=== PATIENT | female | born 1955 | race Caucasian/White ===

== ENCOUNTER 2016-11-04 15:51 | Inpatient (IN) | payer MEDICARE ==
--- NOTE | ~2016-11-04 | CN ---
Consultation Report [facility] [address] [place]. [address] NAME: BELINDA MONTANA : 57 STATUS : ADM IN PAT#: [id number] AGE: 61 ADM/REG DATE : 11/04/16 MR#: [id number] REPORT SERV DATE: 11/06/16 DICTATED BY: OSCAR VINCENT DATE: 11/06/16 REPORT STATUS : Draft TRANSCRIBED BY: MODL DATE: 11/06/16 GI CONSULTATION DATE OF CONSULTATION: 11/06/2016 REASON FOR CONSULTATION: Evaluation and management of abdominal pain. HISTORY OF PRESENT ILLNESS: Ms. Montana is a 61-year-old female patient, who presented to [facility] on the with a chief complaint of right-sided abdominal pain, nausea, emesis, palpitations, and dizziness. She has a history of atrial fibrillation, on chronic Coumadin therapy; as well as uncontrolled diabetes; chronic systolic heart failure, ejection fraction of 35%; chronic kidney disease, stage 3 to 4. She tells me that she has had right-sided abdominal pain for quite sometime now, that has progressively began to worsen. She states her pain is only in the nighttime hours, typically awakens her from sleep, it is in the right upper quadrant mid epigastric region, that wraps around to her back. She states that the only thing that helps it is pain medications, and typically on the mornings after an episode, she feels fine and can go about her activities of daily living. She states that sometimes it can be on the left side, but primarily it is on the right side. She does have reflux and indigestion. She has chronic constipation. She has had no fevers or chills. No melena. No hematochezia. She has never seen a GI physician, had an EGD, nor a colonoscopy. She has type 2 diabetes, that is uncontrolled with a hemoglobin A1c of 12.3. She also, when she came in, was found to be in atrial fibrillation with RVR, which her rate has since been controlled on medications, and has been evaluated by Cardiology. She admits to chronic lower back pain also. She does have a history of a lap band in 2004, which she states has not been adjusted or "dealt with" since it was placed; however, she had a CT scan on admission on which it appeared to be without any abnormality. She had an initial blood sugar in the emergency room of 516 as well as atrial fibrillation with RVR, rate in 140s, with a very mildly elevated troponin. Her white count has been elevated slightly at 13. She was initially started on a Cardizem drip, which has been since converted to oral medications. As stated, CT done on admission without contrast revealed no acute abnormality in the abdomen or pelvis, stable satisfactory position of the lap band device, nonspecific hepatomegaly and hepatic steatosis pattern progressed since her last exam, IVC filter in place within the infrarenal IVC with questionable migration, cardiomegaly with patchy interstitial pulmonary edema versus a bilateral interstitial pneumonitis pattern. She had elevated LFTs with an ALT of 71, AST of 86. Lipase was normal at 302. Total bilirubin was 0.5. PAST MEDICAL HISTORY: Proximal atrial fibrillation, on chronic Coumadin; uncontrolled type 2 diabetes, hemoglobin A1c of 13.2; chronic systolic CHF with ejection fraction of 35%; hypertension; obstructive sleep apnea, with CPAP; hyperlipidemia; chronic kidney disease, stage 3/4; history of DVT with IVC filter; COPD; history of stroke; coronary artery disease, past CABG; hypothyroidism; anemia. PAST SURGICAL HISTORY: CABG, cholecystectomy, lap band, IVC filter. Consultation Report [address] [address] NAME: BELINDA MOTNANA : 57 STATUS : ADM IN [facility]#: [id number] AGE: 61 ADM/REG DATE : 11/04/16 MR#: [id number] REPORT SERV DATE: 11/06/16 DICTATED BY: OSCAR VINCENT DATE: 11/06/16 REPORT STATUS : Draft TRANSCRIBED BY: MIGEL DATE: 11/06/16 SOCIAL HISTORY: She has history of past tobacco. No alcohol or illicits. FAMILY HISTORY: Noncontributory from a GI standpoint. ALLERGIES: TO SOTALOL, AMIODARONE, LEVAQUIN, AND ROCEPHIN. HOME MEDICATIONS: Lipitor, Celexa, Klonopin, Flexeril, Lanoxin, Cartia, Benadryl, Amaryl, Novolin, levothyroxine, Zaroxolyn, Singulair, potassium, Requip, Demadex, Ultram, and Coumadin. REVIEW OF SYSTEMS: A 10-point review of systems has been obtained with pertinent positives being addressed in the history of present illness. PHYSICAL EXAMINATION: VITAL SIGNS: Temperature is 97.6, pulse of 106, respirations of 18, blood pressure of 121/61. GENERAL: Physical exam reveals an alert, obese, female, resting in bed. In general, she is cooperative. She is in no acute distress. She is awake, alert, and oriented x3. HEAD, EARS, EYES, NOSE, AND THROAT: Anicteric. Pupils are equal, round, reactive to light and accommodation. Normocephalic and atraumatic. NECK: No JVD. No palpable nodes. LUNGS: Coarse throughout with normal respiratory effort exhibited. CARDIOVASCULAR SYSTEM: Irregular rate and rhythm. ABDOMEN: Obese, nondistended, nontender. Unable to assess organomegaly secondary to body habitus. EXTREMITIES: Slight lower extremity edema. SKIN: Warm, dry, and intact. PERTINENT LABORATORY DATA: Sodium is 136, potassium 3.8, BUN is 33, creatinine 2.2. White count 13, hemoglobin 10.6, hematocrit 32.6, INR of 1.8, platelet count 265. Troponin 0.12. BNP 363 with a TSH of 4.8. ASSESSMENT: 1. Abdominal pain, mainly right-sided, and the patient states nocturnal abdominal pain which has progressively worsened. 2. Hepatomegaly with hepatic steatosis with elevated liver function tests. 3. Atrial fibrillation with rapid ventricular response, now rate controlled. 4. Type 2 diabetes, uncontrolled. 5. Volume overload with congestive heart failure. Last ejection fraction of 35%. 6. IVC filter migration questionably. 7. Obesity. Consultation Report [address] [place]. [address] NAME: BELINDA MONTANA : 57 STATUS : ADM IN PAT#: [id number] AGE: 61 ADM/REG DATE : 11/04/16 MR#: [id number] REPORT SERV DATE: 11/06/16 DICTATED BY: OSCAR VINCENT DATE: 11/06/16 REPORT STATUS : Draft TRANSCRIBED BY: MIGEL DATE: 11/06/16 PLAN: Check hepatitis panel, LFTs, ultrasound of the liver with Doppler of the vessels as well as check a mesenteric ultrasound, and follow. ARUN/MIGEL Oscar TAQUERIA Tai / [id number] CC: Eran Ordaz M.D.
--- NOTE | ~2016-11-04 | DS ---
Discharge Summary [facility] [address] [place]. [address] NAME: BELINDA MEDINA : 57 STATUS : DIS IN PAT#: [id number] AGE: 61 ADM/REG DATE : 11/04/16 MR#: [id number] REPORT SERV DATE: 11/09/16 DICTATED BY: MICHELLE SONI DATE: 11/08/16 REPORT STATUS : Draft TRANSCRIBED BY: MODL DATE: 11/08/16 ADMISSION DATE: 11/04/2016 DISCHARGE DATE: 11/08/2016 DISCHARGE DIAGNOSES: 1. Abdominal pain, more likely constipation. 2. Uncontrolled diabetes. Patient seen by diabetic education nurse and highly recommend diet control. 3. Atrial fibrillation with rapid ventricular rate, improved, rate controlled, and beta- tsering was added on this admission. 4. BMI 42.9. 5. Sleep apnea, compliant with the CPAP. 6. Chronic kidney disease with acute kidney injury, which is improved. 7. Chronic Coumadin use. CONSULTANTS: 1. Dr. Camacho. 2. GI Associate. 3. Dr. Leggett. HISTORY OF PRESENT ILLNESS: This is a 61-year-old obese female patient, patient of Dr. Lauren Figueroa, came to the hospital with abdominal pain. Please see dictated H and P. She was admitted to hospital with abdominal pain with multiple comorbidities. She had a CT of the abdomen that showed no significant acute pathology. Had been seen by GI and evaluated for vasculopathy. Her mesenteric Doppler was negative. She was found to have constipation and was treated with an AR, and she is better, much improved. On the CT finding, she does have some exophytes coming from her right kidney that will need a followup CT scan. Overall, the medications have been stabilized and managed without significant change of medications. Her atrial fibrillation was noted to be fast rate and was treated with addition of the beta tsering. She will continue to use Toprol-XL 25 mg twice a day based on Dr. Leggett's recommendation. Overall, had maximized benefit of the inpatient care, will be discharged to home. DISCHARGE MEDICATIONS: 1. Aspirin 81 mg once a day. 2. MiraLAX powder once a day. 3. Toprol-XL 25 mg twice a day. 4. Lipitor 20 mg once at nighttime. 5. Celexa 40 mg once a day. 6. Lanoxin 0.125 mg once a day. 7. Cardizem CD 360 mg once a day. 8. Levothyroxine 100 mcg once a day. 9. Requip 1 mg once a day. Discharge Summary [facility] [id number] [place]. [address] NAME: BELINDA MEDINA : 57 STATUS : DIS IN PAT#: [id number] AGE: 61 ADM/REG DATE : 11/04/16 MR#: [id number] REPORT SERV DATE: 11/09/16 DICTATED BY: MICHELLE SONI DATE: 11/08/16 REPORT STATUS : Draft TRANSCRIBED BY: MODL DATE: 11/08/16 10.Singulair 10 mg once a day. 11.Coumadin 1.5 Saturday, Saturday, Saturday; 2 mg the other days. 12.Klonopin 1 mg once a day. 13.Demadex 100 mg once a day. 14.Ultram as needed. DISPOSITION: 1. Patient will be discharged to home in stable condition. Need to follow up with Dr. Lauren Figueroa. 2. The patient will need a close followup with the CT of the renal mass. TIME SPENT: More than 30 minutes on discharge summary. EKL/MODL Michelle Soni M.D. / [id number] CC: Eran Ordaz M.D.
--- NOTE | ~2016-11-04 | CN ---
Consultation Report [facility] [address] [place]. [address] NAME: BELINDA MEDINA : 57 STATUS : ADM IN PAT#: [id number] AGE: 61 ADM/REG DATE : 11/04/16 MR#: [id number] REPORT SERV DATE: 11/05/16 DICTATED BY: MARTÍN LEGGETT DATE: 11/05/16 REPORT STATUS : Draft TRANSCRIBED BY: MODL DATE: 11/05/16 CARDIOLOGY CONSULTATION DATE OF CONSULTATION: 11/05/2016 REASON FOR CONSULTATION: Atrial fibrillation with rapid ventricular rate. HISTORY OF PRESENT ILLNESS: The patient is a 61-year-old female with chronic atrial fibrillation in her rate control strategy, who has previously been intolerant to sotalol and amiodarone with failure of Tikosyn. The patient typically managed on calcium channel tsering and digoxin. Digoxin recently discontinued due to dizziness. The patient presented to the emergency department with complaints of rapid palpitations and dyspnea over three days. She reports that, she had been out of her diltiazem for three days. The patient typically takes diltiazem extended release, taking 180 mg capsule, which had previously been increased by her primary care physician to two capsules daily. When the prescription was renewed, it was renewed only for one tablet daily. She ran out of her diltiazem early because of the increased usage and when she called for refill, the pharmacy/her insurance company denied the same stating that she was not eligible for refill yet. In addition to several days of palpitations, the patient has noted one to two week history of right upper quadrant abdominal pain. She reports some intermittent nausea and vomiting. The patient has a history of chronic dizziness. On her last outpatient office visit, we trialed discontinuation of digoxin. The patient reports some borderline improvement in dizziness off the digoxin, but no significant symptom improvement. The patient denies chest pain. Dyspnea on exertion, which has been worse since increase in heart rate. Currently, rate is adequately controlled on intravenous diltiazem drip. Minimal troponin elevation. No acute ischemic injury pattern on EKG. PAST MEDICAL HISTORY: 1. Permanent atrial fibrillation with previous intolerance to sotalol, amiodarone, and ineffectiveness of Tikosyn. Currently, managed on oral digoxin and diltiazem with rate control strategy. 2. Chronic anticoagulation for stroke prophylaxis secondary to atrial fibrillation-on warfarin. 3. Diabetes mellitus. 4. CAD, status post 4-vessel coronary artery bypass grafting, 09/07/[address] Ji Pendleton with GUTIERREZ-LAD, SVG-PDA, SVG-circumflex, SVG-first diagonal. a. Cardiac catheterization, 02/18/2013 with chronic total occlusion of SVG to diagonal and SVG to PDA, left to right collaterals to the PDA. 5. Ischemic cardiomyopathy - ejection fraction of 45% by most recent echo (actually a PENNY) (07/19/2016 with EF of 45%). 6. Asthma/COPD. 7. Diabetes mellitus. 8. Chronic kidney disease, stage III. 9. Hypothyroidism. Consultation Report [address] [place]. [address] NAME: BELINDA MEDINA : 57 STATUS : ADM IN [facility]#: [id number] AGE: 61 ADM/REG DATE : 11/04/16 MR#: [id number] REPORT SERV DATE: 11/05/16 DICTATED BY: MARTÍN LEGGETT DATE: 11/05/16 REPORT STATUS : Draft TRANSCRIBED BY: MIGEL DATE: 11/05/16 10.Obstructive sleep apnea, on CPAP. 11.Type 2 diabetes mellitus with exceptionally poor control. SOCIAL HISTORY: Denies tobacco, alcohol, or illicit drug use. Remote smoking history. FAMILY HISTORY: Noncontributory. ALLERGIES: AMIODARONE, CEFTRIAXONE, LEVOFLOXACIN, AND SOTALOL. REVIEW OF SYSTEMS: Negative for all organ systems except per the history of present illness. PHYSICAL EXAMINATION: VITAL SIGNS: Pulse ranging 86 to 96 and regular, blood pressure ranging 102/70 to 133/81, weight 110 kg, respirations 12 and unlabored, saturating 94% on room air. GENERAL: Morbidly obese, middle-aged female, in no acute distress. HEENT: Normal. NECK: Supple, no JVD or bruit, normal carotid upstroke bilaterally, no thyromegaly. LUNGS: Clear to auscultation and percussion. No wheezes, rales or rhonchi. No use of accessory muscles. Decreased breath sounds in the bases bilaterally. CARDIOLOGY: Irregularly regular rhythm, normal S1, S2, no thrill, no murmur, rubs or gallops, normal PMI. ABDOMEN: Bowel sounds positive, soft, and nondistended. No masses or aortic bruits. No hepatosplenomegaly or hepatojugular reflux. Morbidly obese. Moderate tenderness to the right upper quadrant. No peritoneal signs. EXTREMITIES: No edema. Normal pulses. No clubbing or cyanosis. SKIN: Warm and dry, no significant rash. NEUROLOGIC: Alert and oriented x 3. Appropriate mood. LABORATORY DATA: Sodium 129, potassium 3.9, chloride 91, BUN 22, creatinine 1.93, GFR 32, glucose 5.16, hemoglobin A1c 12.3. Digoxin level low at 0.1. INR 1.7. WBC 13.8, hemoglobin 10.6, hematocrit 32.7, platelets 246,000. Troponin 0.1, 0.13, 0.12. AST and ALT elevated at 71 and 86 respectively. Thyroid stimulating hormone mildly elevated at 4.89. Telemetry: Atrial fibrillation with controlled ventricular rate. CT of the abdomen-IVC filter, otherwise unremarkable. B-type natriuretic peptide is 364. IMPRESSION: 1. Atrial fibrillation with rapid ventricular rate - secondary to inadvertent medication noncompliance. Difficulties with obtaining medications per pharmacy/insurance as described above. We will begin nonsustained release diltiazem 120 mg p.o. t.i.d. over the next twenty four hours to more rapidly load and then transition to diltiazem 24- Consultation Report [facility] [address] [facility] [place]. [address] NAME: BELINDA MEDINA : 57 STATUS : ADM IN PAT#: [id number] AGE: 61 ADM/REG DATE : 11/04/16 MR#: [id number] REPORT SERV DATE: 11/05/16 DICTATED BY: MARTÍN LEGGETT DATE: 11/05/16 REPORT STATUS : Draft TRANSCRIBED BY: MODL DATE: 11/05/16 hour extended release 360 mg daily. Continue intravenous diltiazem drip for now until loaded with p.o. diltiazem. Restart digoxin. 2. Volume overload - likely secondary to atrial fibrillation with rapid ventricular rate. Diuresis. Echocardiogram to re-evaluate left ventricular systolic function for interval change. 3. Coronary artery disease - stable. No evidence of myocardial infarction. 4. Chronic anticoagulation - dosing per the pharmacy. 5. Minimally elevated troponin - consistent with demand ischemia. Continue current cardiac medications otherwise. 6. Diabetes mellitus - markedly out of control. Defer same to hospitalist. 7. Right upper quadrant discomfort - initial CT of the abdomen without contrast unremarkable. We will defer to hospitalist. Thank you for the opportunity to see the patient in consultation. We will continue to follow the patient with you. VANDANA/MIGEL Mirella Leggett M.D. / [id number] CC: Eran Hidalgo M.D.
--- NOTE | ~2016-11-04 | HP ---
History And Physical [place] [id number] [facility] [place]. [address] NAME: BELINDA MEDINA : 57 STATUS : ADM IN PAT#: [id number] AGE: 61 ADM/REG DATE : 11/04/16 MR#: [id number] REPORT SERV DATE: 11/04/16 DICTATED BY: JAY NORRIS DATE: 11/04/16 REPORT STATUS : Draft TRANSCRIBED BY: MODL DATE: 11/04/16 DATE OF ADMISSION: 11/04/2016 POINT OF ENTRY: [facility] Emergency Department PRIMARY CARE PHYSICIAN: Dr. Lauren Figueroa. PRIMARY CORN POPPER: Dr. Leggett. PRIMARY TUBE MAKING MACHINE OPERATOR: Dr. Farias. CHIEF COMPLAINT: Abdominal pain, nausea, vomiting, palpitations, dizziness. HISTORY OF PRESENT ILLNESS: Ms Medina is a 61-year-old female with a history of paroxysmal atrial fibrillation, on Coumadin anticoagulation, uncontrolled insulin-dependent diabetes mellitus type 2, chronic systolic congestive heart failure with ejection fraction of 45%, chronic kidney disease stage 3, and other with medical comorbidities, who presents to the emergency department today with multiple complaints including right-sided abdominal pain with nausea, vomiting, as well as palpitations and dizziness. The patient states that she has had primarily right lower, right flank, and back pain for the past week. She does endorse occasional episodes of nausea and vomiting. Denies any diarrhea and states the fact that she has been constipated. She denies any fevers, night sweats, chills, or troubles with bleeding. The patient also states that she unfortunately has not been able to afford the Levemir that is prescribed by her PCP and states that the 70/30 insulin that she was prescribed was not working, as such she is currently only on Amaryl and states her blood sugars have been 200 to 300 in the past few weeks. The patient also states for the past week she has felt palpitations and fluttering her chest as if she is back in atrial fibrillation. She is currently only on Cardizem, was taken off Tikosyn by her primary water use inspector sometime ago as well as been told to hold her digoxin for the last few weeks by her water use inspector, given reports of ongoing dizziness. The patient as well as also endorse some chronic issues with dizziness. However, [facility] reveals that these were complaint of hers also back in July as well. Again, she denies any fevers, night sweats, chills, chest pain, shortness of breath, cough production, melena, hematochezia, hemoptysis, hematemesis. Denies any diarrhea, endorses the above-mentioned abdominal pain, nausea, vomiting, dizziness, palpitations, as well as a sensation that she feels very dry. Initial evaluation in the emergency department were notable for a blood sugar of 516. She was noted to be in atrial fibrillation with RVR with heart rates initially in the 140s. Her troponin is mildly elevated at 0.10. White count is elevated at 16.7. Creatinine elevated History And Physical [address] [address] NAME: BELINDA MEDINA : 57 STATUS : ADM IN [facility]#: [id number] AGE: 61 ADM/REG DATE : 11/04/16 MR#: [id number] REPORT SERV DATE: 11/04/16 DICTATED BY: JAY NORRIS DATE: 11/04/16 REPORT STATUS : Draft TRANSCRIBED BY: MIGEL DATE: 11/04/16 at 1.93. She was placed on a Cardizem drip, given IV insulin as well as given Lasix 80 mg x1 given concern for volume overload. She was subsequently admitted to the Hospitalist Service for further evaluation and management. CT scan of the abdomen and pelvis was unremarkable except for medial strut of the IVC filter that has now eroding into the aortic lumen without any evidence of hematoma chest x-ray is concerning for diffuse pulmonary edema and intravascular volume overload. PREVIOUS MEDICAL HISTORY: 1. Paroxysmal atrial fibrillation, on Coumadin. 2. Uncontrolled insulin-dependent diabetes mellitus 2, hemoglobin A1c of 13.2. 3. Chronic systolic congestive heart failure, ejection fraction of 45%. 4. Hypertension. 5. Hyperlipidemia. 6. Obstructive sleep apnea, on CPAP therapy. 7. Previous history of DVT, status post IVC filter insertion. 8. Chronic kidney stage III, baseline creatinine approximately 1.4 to 1.6. 9. COPD. 10.Coronary artery disease with prior coronary artery bypass grafting. 11.History of stroke. 12.Anemia of chronic disease. 13.Hypothyroidism. 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 SURGICAL HISTORY: 1. Coronary artery bypass grafting. 2. Cholecystectomy. 3. Lap-Band surgery. 4. IVC filter insertion. ALLERGIES: TO SOTALOL, AMIODARONE, LEVAQUIN, AND ROCEPHIN. HOME MEDICATIONS: 1. Lipitor 20 mg q.h.s. 2. Celexa 40 mg daily. 3. Klonopin 1 mg daily. 4. Flexeril 10 mg t.i.d. p.r.n. 5. Digoxin 0.125 mg daily. 6. Diltiazem 180 mg daily. 7. Benadryl 25 mg at bedtime. 8. Amaryl 4 mg b.i.d. 9. Insulin 70/30, 30 units b.i.d. 10.Levothyroxine 100 mcg daily. 11.Metolazone 2.5 mg daily p.r.n. weight gain. 12.Singulair 10 mg daily. 13.Potassium chloride 20 mg daily. 14.Requip 1 mg at bedtime. 15.Demadex 100 mg daily. History And Physical [address] [address] NAME: BELINDA MEDINA : 57 STATUS : ADM IN PAT#: [id number] AGE: 61 ADM/REG DATE : 11/04/16 MR#: [id number] REPORT SERV DATE: 11/04/16 DICTATED BY: JAY NORRIS DATE: 11/04/16 REPORT STATUS : Draft TRANSCRIBED BY: MIGEL DATE: 11/04/16 16.Tramadol 50 mg t.i.d. p.r.n. 17.Coumadin 1.5 mg Saturday, Saturday, and Saturday. 18.Coumadin 2 mg Saturday, Saturday, and Saturday. SOCIAL HISTORY: She is a former smoker. Denies any alcohol or illicits. FAMILY MEDICAL HISTORY: Mother with cancer. Father with coronary artery disease. Siblings with a recent admission to our hospital for concerns for temporal arteritis. LABS AND IMAGIN. White count is 16.7, hemoglobin is 11.3, hematocrit is 35.1, and platelet count is 257. INR 1.6. 2. Sodium is 129, potassium 3.9, chloride 91, carbon dioxide 30, BUN 22, creatinine 1.93, glucose is 516, calcium is 9.5, magnesium is 2.0. 3. Lipase is 302. 4. Lactic acid is 2.0. 5. Troponin is 0.10. 6. Urinalysis: Spec gravity is 1.025 with 8 white blood cells per high field, but negative leukocyte esterase and negative nitrites with negative ketones. 7. Chest x-ray per my review shows cardiomegaly with some intravascular volume overload and pulmonary venous congestion. 8. EKG per review shows atrial fibrillation with RVR, heart rates in the 140s, no evidence of any acute ischemia or infarction. 9. CT scan and pelvis shows hepatic steatosis, status post cholecystectomy. Stable and satisfactory position of the Lap-Band device as well as IVC filter in place with an infrarenal IVC. Medial strut appears to have migrated further into the lumen of the adjacent abdominal aorta compared to 2014 CT, no associated retroperitoneal hematoma. Cardiomegaly with patchy interstitial pulmonary edema. PHYSICAL EXAMINATION: VITAL SIGNS: Temperature is 98.2 degrees Fahrenheit, pulse is 142, respirations 20, saturating 96% on room air, blood pressure 133/81. GENERAL: The patient is awake, alert, in no distress resting comfortably. She is a chronically ill-appearing female. HEENT: Atraumatic and normocephalic. Moist mucous membranes. Pupils are equal, round, reactive to light and accommodation. Extraocular eye movements intact. No scleral icterus. NECK: No jugular venous distention. No carotid bruits. CARDIAC: Irregularly irregular rate and rhythm. 2/6 systolic murmur heard best over left lower sternal border. LUNGS: Inspiratory rales and crackles in the bilateral bases. Otherwise, no rhonchi appreciated and no respiratory distress. ABDOMEN: Soft, it is tender to palpation over the right lower quadrant with no rebound, guarding, or rigidity. Hypoactive bowel sounds throughout. EXTREMITIES: Warm and perfused. No cyanosis or clubbing. Does have trace lower extremity chronic appearing edema. SKIN: Warm and dry. PSYCH: Affect is appropriate. History And Physical [address] [place] [address] NAME: BELINDA MEDINA : 57 STATUS : ADM IN [facility]#: [id number] AGE: 61 ADM/REG DATE : 11/04/16 MR#: [id number] REPORT SERV DATE: 11/04/16 DICTATED BY: AJY NORRIS DATE: 11/04/16 REPORT STATUS : Draft TRANSCRIBED BY: MODRaghav DATE: 11/04/16 NEURO: Alert and oriented x3. Cranial nerves II through XII grossly intact. Speech is normal. Gait not assessed. IMPRESSION: Ms medina 61-year-old female who presents with multiple complaints including abdominal pain, nausea, vomiting, palpitations as well as inability to afford her long- acting insulin. Problem list: 1. Atrial fibrillation with rapid ventricular response. 2. Insulin-dependent diabetes mellitus type 2 with hyperglycemia. 3. Acute kidney injury on chronic kidney stage 3. 4. Acute on chronic systolic congestive heart failure. 5. Elevated troponin level. 6. Hyponatremia. 7. Leukocytosis. 8. Right lower quadrant abdominal pain with nausea, vomiting. 9. IVC filter migration. 10.Dizziness. PLAN: 1. Atrial fibrillation with RVR. She is currently on a Cardizem drip. We will continue this. We will consult the patient's primary water use inspector for assistance as it appears that she has been intolerant to amiodarone, sotalol, recently taken off Tikosyn as well as been told to hold her digoxin for various reasons. 2. Insulin-dependent diabetes mellitus type 2 with hyperglycemia, likely secondary to medication noncompliance secondary to inability to afford her a long-acting insulin. We will place her on an insulin drip. Check a hemoglobin A1c as well as wellness educator consultation. 3. Acute kidney injury on chronic kidney stage 3. Per recent admission records from Dr. Farias, it appears her baseline is approximately 1.4 which she is now above. I suspect it is likely due to her acute on chronic systolic congestive heart failure. We will continue to monitor as we diurese. 4. Acute on chronic systolic congestive heart failure. BNP is pending, but CT scan and chest x-ray are concerning for pulmonary edema pattern. She received 80 of IV Lasix here in the emergency department. We will place her on IV Bumex for 24 hours. Check an echocardiogram as well as consult Cardiology for assistance. 5. Elevated troponin level. The patient currently denies any chest pain. Did states she has some indigestion day or two ago. EKG is nonischemic, likely secondary to atrial fibrillation with rapid ventricular response as well as her chronic kidney disease. We will continue to trend out cardiac enzymes. 6. Leukocytosis. Unclear etiology at this time. Chest x-ray and urinalysis are without evidence of infection. Blood cultures were obtained. Lactic acid within normal limits. She is afebrile. We will check a procalcitonin. 7. IVC filter migration, this appears to have been a chronic issue, however, it continues to migrate further. We will consult Vascular Surgery for assistance especially in light of the patient's right lower quadrant abdominal pain. 8. Right lower quadrant abdominal pain with nausea, vomiting. Unclear etiology at this History And Physical [address] [address] NAME: BELINDA MEDINA : 57 STATUS : ADM IN PAT#: [id number] AGE: 61 ADM/REG DATE : 11/04/16 MR#: [id number] REPORT SERV DATE: 11/04/16 DICTATED BY: JAY NORRIS DATE: 11/04/16 REPORT STATUS : Draft TRANSCRIBED BY: MIGEL DATE: 11/04/16 time as labs and imaging are unremarkable. We will check a hepatic function panel as that is not been done here in the ER as well as consult GI for assistance. Place the patient empirically on some Protonix. 9. DVT prophylaxis. The patient is on Coumadin. INR is 1.6. CODE STATUS: The patient wishes to be full code. GLORY/MIGEL Jay Norris MD / [id number] CC: Eran Thompson M.D. Joseph Watlington, M.D.
--- NOTE | ~2016-11-04 | CN ---
Consultation Report [facility] [address] [place]. [address] NAME: BELINDA MEDINA : 57 STATUS : ADM IN PAT#: [id number] AGE: 61 ADM/REG DATE : 11/04/16 MR#: [id number] REPORT SERV DATE: 11/07/16 DICTATED BY: DATE: REPORT STATUS : Draft TRANSCRIBED BY: MODL DATE: 11/07/16 DATE OF CONSULTATION: REASON FOR CONSULTATION: Acute kidney injury on chronic kidney disease. HISTORY OF PRESENT ILLNESS: This is a very pleasant, 61-year-old, obese female patient, who follows chronically in our office by Dr. Oscar Farias. She presents to [facility] on 11/04/2016, complaining of ongoing right lower quadrant abdominal pain with associated dizziness, lethargy, nausea, and vomiting. CT of the abdomen and pelvis was completed showing no acute abdominal or pelvic pathology. No explanation for reported abdominal pain and vomiting, nonspecific hepatomegaly, and hepatic steatosis pattern progressed since prior exam, chronic changes of cholecystectomy and a sharply defined exophytic probable hyperdense cyst on the right upper pole of the kidney measuring [address] density slightly more dense and enlarged in overall size in comparison to 2014. Further characterization with a multiphase dedicated followup CT is recommended. Also shown in place is an IVC filter with infrarenal IVC, which showed to have possibly migrated further into the lumen adjacent to the abdominal aorta compared to the 2014 CT. No associated retroperitoneal hematoma or other uncertainty of clinical significance. It was noted she was also found to be in atrial fibrillation with a rapid ventricular response and was seen by Dr. Leggett on 11/05/2016 with control of cardiac rate. She remains controlled currently. She is chronically managed in the outpatient setting on p.o. diuretic with p.r.n. metolazone and had maintained that medication even in the face of decreasing p.o. intake, weight loss, and nausea and vomiting. Consultation was requested by GI Services and undertaken and investigation is still underway regarding the exact erik of her ongoing abdominal pain, although this patient reports this afternoon that the abdominal pain has improved somewhat with precipitation of a large bowel movement last evening. Baseline creatinine appears to be 1.3 to 1.8 and she was at 2.0 on 08/27/2016. She has a poorly-controlled diabetes with A1c registering at 13.2 and states that this is related to ongoing difficulty with exact control and her insulin dosing that she is currently using at home. The patient is awake and alert this afternoon. Denies current chest pain. No nausea or vomiting. She continues to have diffuse, particularly right lower quadrant abdominal pain, but reports this has improved with initiation of bowel movement as listed above. PAST MEDICAL HISTORY: Positive for paroxysmal atrial fibrillation with rapid ventricular response. She is chronically on Coumadin. History is also positive for insulin-dependent diabetes mellitus with hemoglobin A1c of 13.2; chronic systolic congestive heart failure, last known ejection fraction of 45%; hypertension; hyperlipidemia; obstructive sleep apnea; obesity, continued compliance to CPAP therapy; previous history of DVT, status post IVC filter insertion with IVC notations as listed above; chronic kidney disease stage 3, baseline creatinine as listed above; COPD; coronary artery disease with previous CABG; history of CVA; anemia of chronic disease; and hypothyroidism. There was a previous concern for possible amiodarone-induced pulmonary toxicity. SURGICAL HISTORY: Includes coronary artery disease, bypass grafting, cholecystectomy, Consultation Report [address] [place]. [address] NAME: BELINDA MEDINA : 57 STATUS : ADM IN PAT#: [id number] AGE: 61 ADM/REG DATE : 11/04/16 MR#: [id number] REPORT SERV DATE: 11/07/16 DICTATED BY: DATE: REPORT STATUS : Draft TRANSCRIBED BY: MIGEL DATE: 11/07/16 laparoscopic band, and IVC filter insertion. ALLERGIES: LISTED IS SOTALOL, AMIODARONE, LEVAQUIN, AND ROCEPHIN. ENTRY MEDICATIONS: Include the following: Lipitor 20 mg p.o. q.h.s.; Celexa 40 mg daily; Klonopin 1 mg p.o. daily; Flexeril 10 mg p.o. t.i.d.; digoxin 0.125 mg daily; diltiazem 180 mg daily; Benadryl 25 mg p.o. q.h.s.; Amaryl 4 mg p.o. b.i.d.; insulin 70/30, 30 units b.i.d.; levothyroxine 100 mcg daily; metolazone 2.5 mg daily p.r.n.; Singulair 10 mg p.o. daily; potassium chloride 20 mEq daily; Requip one p.o. q.h.s.; Demadex 100 mg p.o. daily; tramadol 50 mg p.o. t.i.d. p.r.n.; Coumadin 1.5 mg on Saturday, Saturday, Saturday and 2 mg on Saturday, , and Saturday. SOCIAL HISTORY: She has a remote history of smoking. No longer uses tobacco products. Denies EtOH or illicit drugs. FAMILY HISTORY: Noncontributory and not reviewed during this consultation. PHYSICAL EXAMINATION: VITAL SIGNS: Blood pressure 137/68, temperature 97.6, respiratory rate 18, heart rate 98 beats per minute, 97% on room air. GENERAL: She is awake, alert, and oriented, in no acute distress during evaluation. HEENT: Normocephalic and atraumatic. Normal ocular movements. No scleral icterus. No conjunctival pallor is appreciated. NECK: Supple without thyromegaly. No JVD or mass. CHEST: Shows positive S1 and S2. No rubs or gallops. LUNGS: Diminished, but clear to auscultation. Otherwise, normal expansion and effort bilaterally. No rhonchi or wheezes are noted. GI: Shows an obese, rounded abdomen. Positive bowel sounds. Tenderness to palpation, particularly to her right lower quadrant. : Deferred. She appears to have reasonable urinary output. NEUROLOGIC: Appears to be grossly intact. Nonfocal. SKIN: Warm, dry, and intact to the visualized surfaces. No rash, lesions, or ecchymosis. PSYCH: She is of appropriate mood and affect. LABORATORY DATA: Pertinent laboratories and imaging as listed above. CT of the abdomen and pelvis on entry as listed above. Most recent ammonia level at 13. Mesenteric duplex is negative for mesenteric ischemia. Hepatitis profile is negative. Hepatic function panel: Sodium 135, potassium 3.9, chloride 98, CO2 24, BUN 34, creatinine 2.25, reflected GFR at 23 mL/minute, calcium 9.6. Lipid panel: Cholesterol 110, HDL 49, LDL 36, triglycerides 128, total protein 8.7, albumin 3.2, direct bilirubin 0.2, indirect 0.3, alkaline phosphatase at 134, ALT and AST 63 and 85 respectively. CBC: White blood cell count at 16.0, RBC 4.53, hemoglobin 11.6, hematocrit 34.9, and platelets at 303. Duplex to investigate her vena cava filter does not satisfactorily answer question of IVC filter migration; however, the filter appears to have seated well and looks to penetrate the wall of the vena cava. There does not appear to be any bleeding or complication according to this report. Blood cultures Consultation Report [facility] [address] [address] NAME: BELINDA MEDINA : 57 STATUS : ADM IN PAT#: [id number] AGE: 61 ADM/REG DATE : 11/04/16 MR#: [id number] REPORT SERV DATE: 11/07/16 DICTATED BY: DATE: REPORT STATUS : Draft TRANSCRIBED BY: MODL DATE: 11/07/16 collected on entry, no growth in two days. Urinalysis was negative for ketones, bilirubin, leukocyte esterase and showed minimal white blood cells, red blood cells, and rare mucus. Lactate was at 2.0. IMPRESSION AND PLAN: Acute kidney injury on chronic kidney disease. Baseline creatinine as listed above with most recent creatinine now at 2.25, reflected GFR at 23 mL/minute. The patient is followed chronically by Dr. Oscar Farias in our office with baseline creatinine across 2015 and 2016, trending upward, 1.3 on 08/11/2015; 1.4 in February 2016; 1.8 in July 2016 and then in August, a creatinine of 2.0 with GFR of 27 mL/minute. Creatinine today is at 2.25 with a GFR of 23 mL/minute. It could represent an acute kidney injury or considering her poorly-controlled diabetes mellitus with an A1c of 13.2 could represent simple progression. If in fact this is an acute kidney injury, it is likely multifactorial in nature related to volume contraction from nausea, vomiting, and poor p.o. intake plus or minus hypoperfusion with atrial fibrillation with rapid ventricular response, plus or minus an underlying infectious process with elevated WBCs. However, given her non-elevation of lactate, this is an unlikely scenario at this point. We will undertake the following measures. Continue her current IV fluids, normal saline at 60 mL/h. Watch her volume status closely. She does have a decreased ejection fraction. Metolazone and Demadex have been stopped. We would avoid any contrast studies or nonsteroidal medications and RALPH inhibitors or ARBs currently. Check renal ultrasound. Check postvoid residual. Check procalcitonin. Improve blood glucose control and follow with serial laboratories, strict I's and O's, daily weights, and further modification based off the patient's presentation, laboratory results, and further consultation with renal attending. We are hopeful of renal recovery in this patient and we will follow her closely with you. Thank you for consultation. /MIGEL Garrett Senior NP / [id number] CC: Eran Ordaz M.D.
[~2016-11-04 15:51] MED LIST: ACCUNEB INH; ACET500CAP PO; ALBUTEROL5 INH; ALLEGRA180 PO; AMARYL4 PO; AMOXIL500 MG PO; ASAB PO; ATORVASTATIN PO; BEN25 PO; BENADRYL 50 MG50 MG PO; BETAPACE80 PO; BL FLAX SEED1000 MG PO; BROVANA15 MCG INH; BUDESONIDE INH; C1 PO; C2 PO; CARD30 PO; CARD60 PO; CARDCD180 PO; CELEXA40 MG PO; CLARIT10 PO; CORDARONE PO; COREG12 PO; COREG25 PO; DEMA100 PO; FLAXSEED OIL PO; FLEX PO; FLEXERIL PO; FLORASTOR250 MG PO; GLUCOPHAGE1000 MG PO; HUMALOG SC; HUMULIN SC; IMDUR30 PO; IRON PO; IRON325 MG PO; JANUVIA50; K-TABS10 MEQ PO; KDUR10 PO; KLONO1 PO; KLOR-CON 1010 MEQ PO; KLOR-CON M1010 MEQ PO; KLOR-CON M2020 MEQ PO; L80 PO; LAN125 PO; LEVEMIR SC; LEVOTHYROXIN50 MCG PO; LEXAPRO20 PO; LIPITOR20 PO; LOP25 PO; MAGOX4 PO; MVI PO; NASONEX NAS; NORV5 PO; NOVOLOG SC; P10 PO; P20 PO; P5 PO; PACERONE400 MG PO; PEP20 PO; PRAVACHOL40 MG PO; PRAVACHOL80 MG PO; PRILO PO; PRILOSEC40 MG PO; PRIN10 PO; PRIN2.5 PO; PRIN20 PO; PRINZIDE PO; PROAIR HFA INH; PROAIR HFA PO; PROVENTSOL INH; PROVHFA INH; PULRESP1 INH; PULRESP1 PO; SINGULAIR1 PO; SORINE80 MG PO; STERAPRED DS10 MG PO; SYMBICORT 160/41 INH INH; SYN.05 PO; SYN1 PO; T PO; TIKOSYN125 MCG OR; TIKOSYN125 MCG PO; ULTRAM50 PO; VITAMIN D1000 UNI1 PO; VITAMIN D2000 UNIT PO; VITAMIN D3 PO; VITAMIN D31000 UNIT PO; ZAROX2.5B PO; ZITH250 PO; ZOCOR20 PO
[2016-11-04 16:57] LABS: BASOPHILS 0.2 %; BASOPHILS ABSOLUTE 0.04 10/3/uL (0.0-0.16); EOSINOPHILS 0.7 %; EOSINOPHILS ABSOLUTE 0.11 10/3/uL (0.0-0.53); HEMATOCRIT 35.1 % (36.0-48.0); HEMOGLOBIN 11.3 g/dL (12.0-16.0); IMMATURE GRANULOCYTES 0.4 %; IMMATURE GRANULOCYTES ABSOLUTE 0.06 10/3/uL (0.0-0.11); LYMPHOCYTES ABSOLUTE 2.57 10/3/uL (0.67-4.30); MEAN CORPUS HGB CONC 32.2 g/dL (32.0-36.0); MEAN PLATELET VOLUME 10.3 fL (9.2-13.0); MONOCYTES 5.5 %; MONOCYTES ABSOLUTE 0.89 10/3/uL (0.21-1.20); NEUTROPHILS 77.2 %; PLATELET COUNT 257 10/3/uL (150-400); RBC DISTRIBUTION WIDTH 14.5 % (12.0-16.0); RED CELL COUNT 4.52 10/6/uL (4.0-5.6)
[2016-11-04 16:58] LABS: ER CBC TAT 0 Hrs 07 Mins; MANUAL DIFF NO %; MEAN CORPUSCULAR VOLUME 77.7 fL (80-100); WHITE BLOOD CELLS 16.1 10/3/uL (4.5-10.5)
[2016-11-04 17:08] LABS: INTERNATIONAL NORMAL RATI 1.6 UNITS (-); PROTIME (NOT ORD) 19.2 SEC (12.0-14.5)
[2016-11-04 17:09] LABS: PARTIAL THROMBO TIME 33.7 SEC (22.5-37.2)
[2016-11-04 17:14] LABS: CO2 (CARBON DIOXIDE) 30 MMOL/L (24-34); CREATININE 1.93 MG/DL (0.55-1.02); GFR AFRICAN AMERICAN 32 ML/MIN (>=60); GFR NON AFRICAN AMERICAN 28 ML/MIN (>=60); POTASSIUM, SERUM 3.9 MMOL/L (3.5-5.3)
[2016-11-04 17:15] LABS: BUN (BLOOD UREA NITROGEN) 22 MG/DL (6-23); CALCIUM, SERUM 9.5 MG/DL (8.5-10.4); CHLORIDE, SERUM 91 MMOL/L (96-112); GLUCOSE, SERUM 516 MG/DL (60-99); SODIUM, SERUM 129 MMOL/L (135-148)
[2016-11-04 17:17] LABS: CHEST PAIN PROFILE TAT 0 Hrs 26 Mins
[2016-11-04 18:41] LABS: ASCORBIC ACID (UR NOT ORDER) NEG (NEG); BILIRUBIN, URINE NEGATIVE (NEG); ER URINALYSIS TAT 0 Hrs 26 Mins; KETONE, URINE NEGATIVE (NEG); LEUKOCYTE ESTERASE(NOT OR NEG (NEG); NITRITE (URINE) NEG (NEG); WBC (NOT ORDERED) (RFLEX) 8 (0-5)
[2016-11-04] MEDS ORDERED: DEMA100 PO (20:31)
[2016-11-04] MEDS ORDERED: REQUIP1 PO (20:31)
[2016-11-04] MEDS ORDERED: CARTIA XT180 MG/24 PO (20:32)
[2016-11-04] MEDS ORDERED: ULTRAM50 PO (20:32)
[2016-11-04] MEDS ORDERED: KLONO1 PO (20:32)
[2016-11-04] MEDS ORDERED: C2 PO (20:33)
[2016-11-04] MEDS ORDERED: C1 PO (20:33)
[2016-11-04] MEDS ORDERED: FLEX PO (20:33)
[2016-11-04] MEDS ORDERED: SINGULAIR1 PO (20:34)
[2016-11-04] MEDS ORDERED: KLOR-CON M2020 MEQ PO (20:34)
[2016-11-04] MEDS ORDERED: LAN125 PO (20:34)
[2016-11-04] MEDS ORDERED: ZAROX2.5B PO (20:35)
[2016-11-04] MEDS ORDERED: AMARYL4 PO (20:36)
[2016-11-04] MEDS ORDERED: LIPITOR20 PO (20:36)
[2016-11-04] MEDS ORDERED: INSNOV7030 SC (20:36)
[2016-11-04] MEDS ORDERED: LEVOTHYROXIN100 MCG PO (20:36)
[2016-11-04] MEDS ORDERED: CELEXA40 MG PO (20:37)
[2016-11-04] MEDS ORDERED: BEN25 PO (20:38)
[2016-11-04 22:06] LABS: ALBUMIN 3.1 G/DL (3.5-5.0); DIRECT BILIRUBIN 0.2 MG/DL (0.0-0.4); INDIRECT BILIRUBIN(NOT ORDER) 0.3 MG/DL (0.1-0.9); SGOT(AST) 86 U/L (5-40); SGPT(ALT) 71 U/L (5-65); TOTAL BILIRUBIN 0.5 MG/DL (0-1.2); TOTAL PROTEIN 8.6 G/DL (6.0-8.5)
[2016-11-04 22:07] LABS: ALKALINE PHOSPHATASE 119 U/L (45-117)
[2016-11-04 22:46] LABS: PROCALCITONIN 0.25 ng/mL (<0.5)
[2016-11-05 03:21] LABS: CPK 57 U/L (0-200); DIGOXIN 0.1 NG/ML (0.8-2.0)
[2016-11-05 03:22] LABS: CK-MB 0.7 NG/ML; TROPONIN I 0.13 NG/ML (<0.05)
[2016-11-05 04:46] LABS: BASOPHILS 0.4 %; BASOPHILS ABSOLUTE 0.05 10/3/uL (0.0-0.16); EOSINOPHILS 4.5 %; EOSINOPHILS ABSOLUTE 0.62 10/3/uL (0.0-0.53); HEMATOCRIT 32.7 % (36.0-48.0); HEMOGLOBIN 10.6 g/dL (12.0-16.0); IMMATURE GRANULOCYTES 0.3 %; IMMATURE GRANULOCYTES ABSOLUTE 0.04 10/3/uL (0.0-0.11); LYMPHOCYTES 28.9 %; LYMPHOCYTES ABSOLUTE 3.98 10/3/uL (0.67-4.30); MEAN CORPUS HGB CONC 32.4 g/dL (32.0-36.0); MEAN CORPUSCULAR HEMOGLOB 25.4 pg (26.0-34.0); MEAN CORPUSCULAR VOLUME 78.2 fL (80-100); MEAN PLATELET VOLUME 10.2 fL (9.2-13.0); MONOCYTES 6.5 %; NEUTROPHILS 59.4 %; PLATELET COUNT 246 10/3/uL (150-400); RBC DISTRIBUTION WIDTH 14.4 % (12.0-16.0); RED CELL COUNT 4.18 10/6/uL (4.0-5.6); WHITE BLOOD CELLS 13.8 10/3/uL (4.5-10.5)
[2016-11-05 04:53] LABS: INTERNATIONAL NORMAL RATI 1.7 UNITS (-); MANUAL DIFF NO %; PROTIME (NOT ORD) 20.1 SEC (12.0-14.5)
[2016-11-05 05:03] LABS: CPK 57 U/L (0-200)
[2016-11-05 05:04] LABS: CK-MB 0.7 NG/ML; TROPONIN I 0.12 NG/ML (<0.05)
[2016-11-06 05:44] LABS: BASOPHILS 0.5 %; BASOPHILS ABSOLUTE 0.07 10/3/uL (0.0-0.16); EOSINOPHILS 5.5 %; EOSINOPHILS ABSOLUTE 0.71 10/3/uL (0.0-0.53); HEMATOCRIT 32.6 % (36.0-48.0); HEMOGLOBIN 10.6 g/dL (12.0-16.0); IMMATURE GRANULOCYTES 0.3 %; IMMATURE GRANULOCYTES ABSOLUTE 0.04 10/3/uL (0.0-0.11); LYMPHOCYTES 24.9 %; LYMPHOCYTES ABSOLUTE 3.22 10/3/uL (0.67-4.30); MEAN CORPUS HGB CONC 32.5 g/dL (32.0-36.0); MEAN CORPUSCULAR HEMOGLOB 25.6 pg (26.0-34.0); MEAN CORPUSCULAR VOLUME 78.7 fL (80-100); MEAN PLATELET VOLUME 10.2 fL (9.2-13.0); MONOCYTES 6.4 %; MONOCYTES ABSOLUTE 0.83 10/3/uL (0.21-1.20); NEUTROPHILS 62.4 %; NEUTROPHILS ABSOLUTE 8.08 10/3/uL (2.02-8.40); PLATELET COUNT 265 10/3/uL (150-400); RBC DISTRIBUTION WIDTH 14.7 % (12.0-16.0); RED CELL COUNT 4.14 10/6/uL (4.0-5.6)
[2016-11-06 05:45] LABS: MANUAL DIFF NO %
[2016-11-06 05:53] LABS: INTERNATIONAL NORMAL RATI 1.8 UNITS (-); PROTIME (NOT ORD) 20.9 SEC (12.0-14.5)
[2016-11-06 05:56] LABS: ALBUMIN 2.8 G/DL (3.5-5.0); CALCIUM, SERUM 8.7 MG/DL (8.5-10.4); CHLORIDE, SERUM 99 MMOL/L (96-112); CO2 (CARBON DIOXIDE) 28 MMOL/L (24-34); GFR AFRICAN AMERICAN 27 ML/MIN (>=60); GFR NON AFRICAN AMERICAN 24 ML/MIN (>=60); POTASSIUM, SERUM 3.8 MMOL/L (3.5-5.3)
[2016-11-06 05:57] LABS: BUN (BLOOD UREA NITROGEN) 33 MG/DL (6-23); GLUCOSE, SERUM 204 MG/DL (60-99); PHOSPHORUS, SERUM 4.6 MG/DL (2.5-4.5); SODIUM, SERUM 136 MMOL/L (135-148)
[2016-11-07 06:39] LABS: BASOPHILS 0.2 %; BASOPHILS ABSOLUTE 0.03 10/3/uL (0.0-0.16); EOSINOPHILS 0.1 %; EOSINOPHILS ABSOLUTE 0.01 10/3/uL (0.0-0.53); HEMATOCRIT 34.9 % (36.0-48.0); HEMOGLOBIN 11.6 g/dL (12.0-16.0); IMMATURE GRANULOCYTES 0.3 %; IMMATURE GRANULOCYTES ABSOLUTE 0.05 10/3/uL (0.0-0.11); LYMPHOCYTES 7.6 %; LYMPHOCYTES ABSOLUTE 1.22 10/3/uL (0.67-4.30); MEAN CORPUS HGB CONC 33.2 g/dL (32.0-36.0); MEAN CORPUSCULAR HEMOGLOB 25.6 pg (26.0-34.0); MEAN PLATELET VOLUME 9.9 fL (9.2-13.0); MONOCYTES ABSOLUTE 0.64 10/3/uL (0.21-1.20); NEUTROPHILS 87.8 %; NEUTROPHILS ABSOLUTE 14.08 10/3/uL (2.02-8.40); PLATELET COUNT 303 10/3/uL (150-400); RBC DISTRIBUTION WIDTH 14.5 % (12.0-16.0); RED CELL COUNT 4.53 10/6/uL (4.0-5.6)
[2016-11-07 06:40] LABS: MANUAL DIFF NO %
[2016-11-07 06:42] LABS: INTERNATIONAL NORMAL RATI 1.8 UNITS (-)
[2016-11-07 06:57] LABS: ALBUMIN 3.2 G/DL (3.5-5.0); BUN (BLOOD UREA NITROGEN) 34 MG/DL (6-23); CALCIUM, SERUM 9.6 MG/DL (8.5-10.4); CHLORIDE, SERUM 98 MMOL/L (96-112); CO2 (CARBON DIOXIDE) 24 MMOL/L (24-34); CREATININE 2.25 MG/DL (0.55-1.02); DIRECT BILIRUBIN 0.2 MG/DL (0.0-0.4); GFR AFRICAN AMERICAN 27 ML/MIN (>=60); GFR NON AFRICAN AMERICAN 23 ML/MIN (>=60); INDIRECT BILIRUBIN(NOT ORDER) 0.3 MG/DL (0.1-0.9); POTASSIUM, SERUM 3.9 MMOL/L (3.5-5.3); SODIUM, SERUM 135 MMOL/L (135-148); TOTAL BILIRUBIN 0.5 MG/DL (0-1.2); TOTAL PROTEIN 8.7 G/DL (6.0-8.5); TRIGLYCERIDE 128 MG/DL (< 150)
[2016-11-07 06:58] LABS: SGOT(AST) 85 U/L (5-40); SGPT(ALT) 63 U/L (5-65)
[2016-11-07 07:00] LABS: ALKALINE PHOSPHATASE 134 U/L (45-117); CHOL/HDL RATIO(NOT ORDER) 2.2 (0-5); CHOLESTEROL 110 MG/DL (< 200); GLUCOSE, SERUM 368 MG/DL (60-99); HDL CHOLESTEROL 49 MG/DL (> 49); LDL CHOLESTEROL 36 MG/DL (< 130); NON-HDL CHOLESTEROL 61 MG/DL (< 160)
[2016-11-07 10:53] LABS: HEPATITIS B SURFACE ANTIGEN NON-REACTIVE (NON-REACT)
[2016-11-07 11:14] LABS: HEPATITIS C ANTIBODY NON-REACTIVE (NON-REACT)
[2016-11-07 11:15] LABS: HEPATITIS B CORE AB IGM NON-REACTIVE (NON-REAC)
[2016-11-07 11:16] LABS: HEP A ANTIBODY IGM NON-REACTIVE (NON-REACT)
[2016-11-07 17:16] LABS: PROCALCITONIN 0.15 ng/mL (<0.5)
[2016-11-08 04:39] LABS: ALBUMIN 2.7 G/DL (3.5-5.0); BUN (BLOOD UREA NITROGEN) 31 MG/DL (6-23); CALCIUM, SERUM 8.9 MG/DL (8.5-10.4); CHLORIDE, SERUM 106 MMOL/L (96-112); CO2 (CARBON DIOXIDE) 28 MMOL/L (24-34); CREATININE 1.96 MG/DL (0.55-1.02); DIRECT BILIRUBIN 0.2 MG/DL (0.0-0.4); GFR AFRICAN AMERICAN 31 ML/MIN (>=60); GFR NON AFRICAN AMERICAN 27 ML/MIN (>=60); INDIRECT BILIRUBIN(NOT ORDER) 0.3 MG/DL (0.1-0.9); POTASSIUM, SERUM 4.4 MMOL/L (3.5-5.3); SGOT(AST) 77 U/L (5-40); SGPT(ALT) 71 U/L (5-65); SODIUM, SERUM 141 MMOL/L (135-148); TOTAL BILIRUBIN 0.5 MG/DL (0-1.2); TOTAL PROTEIN 7.5 G/DL (6.0-8.5)
[2016-11-08 04:40] LABS: BASOPHILS 0.2 %; BASOPHILS ABSOLUTE 0.03 10/3/uL (0.0-0.16); EOSINOPHILS 1.2 %; HEMATOCRIT 33.4 % (36.0-48.0); HEMOGLOBIN 10.8 g/dL (12.0-16.0); IMMATURE GRANULOCYTES 0.4 %; IMMATURE GRANULOCYTES ABSOLUTE 0.07 10/3/uL (0.0-0.11); LYMPHOCYTES 15.7 %; LYMPHOCYTES ABSOLUTE 2.64 10/3/uL (0.67-4.30); MEAN CORPUS HGB CONC 32.3 g/dL (32.0-36.0); MEAN CORPUSCULAR HEMOGLOB 25.4 pg (26.0-34.0); MEAN CORPUSCULAR VOLUME 78.6 fL (80-100); MONOCYTES 6.8 %; MONOCYTES ABSOLUTE 1.14 10/3/uL (0.21-1.20); NEUTROPHILS 75.7 %; NEUTROPHILS ABSOLUTE 12.78 10/3/uL (2.02-8.40); PLATELET COUNT 297 10/3/uL (150-400); RBC DISTRIBUTION WIDTH 14.9 % (12.0-16.0); RED CELL COUNT 4.25 10/6/uL (4.0-5.6); WHITE BLOOD CELLS 16.9 10/3/uL (4.5-10.5)
[2016-11-08 04:48] LABS: ALKALINE PHOSPHATASE 119 U/L (45-117); GLUCOSE, SERUM 167 MG/DL (60-99); PHOSPHORUS, SERUM 3.6 MG/DL (2.5-4.5)
[2016-11-08 04:49] LABS: MANUAL DIFF NO %
[2016-11-08 04:59] LABS: INTERNATIONAL NORMAL RATI 2.1 UNITS (-); PROTIME (NOT ORD) 23.3 SEC (12.0-14.5)
[2016-11-08] MEDS ORDERED: LOP25 PO (16:36)
[2016-11-08] MEDS ORDERED: MIRALAX POWDER1 PKT PO (16:36)
[2016-11-08] MEDS ORDERED: NORCO1 TA1 PO (16:37)
== END 2016-11-08 17:56 | disposition home or self-care (01) | DRG 682 ==
LOC: ER 15:51 → 5NO 21:19
PROVIDERS: Emergency Medicine; Hospitalist; Internal Medicine; Nurse Practitioner Family; Registered Nurse
DX: N17.9 Acute kidney failure, unspecified (principal); I50.23 Acute on chronic systolic (congestive) heart failure; T82.528A Displacement of other cardiac and vascular devices and implants, initial encounter; E11.65 Type 2 diabetes mellitus with hyperglycemia; I13.0 Hypertensive heart and chronic kidney disease with heart failure and stage 1 through stage 4 chronic kidney disease, or unspecified chronic kidney disease; E87.1 Hypo-osmolality and hyponatremia; Z68.41 Body mass index [BMI] 40.0-44.9, adult; N18.3 Chronic kidney disease, stage 3 (moderate); Z79.4 Long term (current) use of insulin; Z86.718 Personal history of other venous thrombosis and embolism; J44.9 Chronic obstructive pulmonary disease, unspecified; I25.10 Atherosclerotic heart disease of native coronary artery without angina pectoris; Z95.1 Presence of aortocoronary bypass graft; E03.9 Hypothyroidism, unspecified; D63.8 Anemia in other chronic diseases classified elsewhere; I48.0 Paroxysmal atrial fibrillation; E66.9 Obesity, unspecified
CPT/HCPCS: 71010; 74176; 80048; 80061; 80069; 80074; 80076; 80162; 81001; 82140; 82550; 82553; 82570; 82962; 83036; 83605; 83690; 83735; 83880; 84145; 84300; 84443; 84484; 84540; 85025; 85610; 85730; 87040; 93880; 93975; 93978; 96365; 96366; 96375; 99285; A9270-GY; C8929; C9113; J1940; J2405; Q9957